=== PATIENT | male | born 1945 | race Hispanic/Latino ===

== ENCOUNTER 2020-01-26 21:17 | Observation (INO) | payer MEDICARE, BC, OTHER ==
[2020-01-26 21:52] LABS: #Monocytes 0.4 thou/uL (0.11-0.59); #Neutrophils 3.3 thou/uL (1.40-6.50); %Basophils 0.3 % (0.0-1.0); %Eosinophils 0.8 % (0.0-10.0); %Lymphocytes 20.3 % (21.0-51.0); %Monocytes 8.2 % (0.0-10.0); %Neutrophils 70.4 % (42.0-75.0); Hemoglobin 15.2 g/dL (14.0-18.0); Mean Corpuscular HGB CONC 34.1 g/dL (32.0-36.0); Mean Corpuscular Hemoglobin 31.2 pg (27.0-31.0); Mean Corpuscular Volume 91.6 fL (78.0-98.0); RBC Distribution Width 11.9 % (11.5-14.5); Red Blood Cell (RBC) Count 4.88 mill/uL (4.70-6.10); White Blood Cell (WBC) Count 4.7 thou/uL (4.8-10.8)
--- NOTE | 2020-01-26 21:53 | RAD ---
EXAM: Single view of the chest HISTORY: Chest palpitations COMPARISON: 09/25/2007 FINDINGS: Single view of the chest shows a normal sized cardiomediastinal silhouette. The patient is status post sternotomy. There is no evidence of consolidation, mass, or pleural effusion. Degenerative changes are seen in the spine. IMPRESSION: No evidence of acute cardiopulmonary disease
[2020-01-26 22:13] LABS: MDiff Complete? YES; Mean Platelet Volume 8.7 fL (7.4-10.4); Platelet Count 117 thou/uL (130-400); Platelet Morphology Comment Appears Decreased; Polychromasia SLIGHT = 2-3 cells (100X) (0-2/hpf)
[2020-01-26 22:14] LABS: ALT (SGPT) 23 U/L (8-55); AST (SGOT) 32 U/L (5-34); Albumin 4.2 g/dL (3.4-4.8); Alkaline Phosphatase 93 U/L (40-110); Anion Gap 11 mmol/L (10-20); BUN (Urea Nitrogen) 27 mg/dL (8.4-25.7); Bilirubin, Total 1.7 mg/dL (0.2-1.2); CK (CPK) 300 U/L (30-200); Calc. Creatinine Clearance 0 mL/min (70-130); Carbon Dioxide 29 mmol/L (23-31); Chloride 106 mmol/L (98-107); Estimated GFR-MDRD 68; Globulin 3.7 g/dL (2.4-3.5); Glucose 120 mg/dL (83-110); Potassium 3.7 mmol/L (3.5-5.1); Protein, Total 7.9 g/dL (5.8-8.1); Sodium 142 mmol/L (136-145)
--- NOTE | 2020-01-26 22:48 | PDOC.FPRHP ---
Addendum entered and electronically signed by Raquel Briscoe DO 01/27/20 04:53: Cr was normal at 1.06 on admission. GFR at 68 was reason for suspicion HOLLIS vs. CKD. Original Note: - History of Present Illness Chief Complaint: palpitations History of Present Illness: Patient is a 74 yo M, PMHx of ND (CABG 2018), HTN, HLD who presents to the ED with complaints of palpitations and L sided chest discomfort described as "bubbles and discomfort that started in the upper abdomen and moved into the left side of the chest" accompanied by cramping in his hands b/l. He notes the chest discomfort started late afternoon after he had been outside working all day, lasted about 2 hours before coming in and the hand cramping lasted about an hour before he came to the ED. Patient denies pain in his chest and notes that his ND in 2007 also did not present with pain. He states he did not have much water to drink during the day, but did eat well. Patient denies N/V, shortness of breath, dizziness/lightheaded, fever, cough, congestion. Patient states that he has been having intermittent LUQ pain associated with constipation intermittently for weeks. Denies blood in his stools. ED Course: 500mL NS, aspirin 324, nitro, 1g tylenol - Allergies/Adverse Reactions Allergies Allergy/AdvReac Type Severity Reaction Status Date / Time No Known Allergies Allergy Unverified 01/27/20 00:35 - History PMHx:ND, HTN, HLD PSHx: CABG 2018, prostectomy FHx: grandmother with ND Social: no smoking, alcohol or drugs - Review of Systems General: denies: fever/chills, weight/appetite/sleep changes Eyes: denies: eye pain, vision changes ENT: denies: nasal congestion, rhinorrhea Respiratory: denies: cough, shortness of breath Cardiovascular: reports: chest pain (chest discomfort), palpitation. denies: edema Gastrointestinal: reports: abdominal pain. denies: nausea, vomiting, diarrhea Genitourinary: denies: incontinence, dysuria Skin: denies: rashes, lesions Musculoskeletal: denies: pain, tenderness Neurological: denies: numbness, syncope - Vital signs BP: 150/84, Pulse: 56, Resp: 16, Temp: 98.3F, O2 sat: 100 on RA, Wt: 64.4kg - Physical Exam Constitutional: NAD, awake, alert and oriented HEENT: normocephalic and atraumatic, EOMI Neck: supple, FROM Chest: no-tender to palpation, no lesions Heart: RRR, no murmurs/rubs/gallops, pulses present, no edema Lungs: CTAB, no respiratory distress Abdomen: soft, no masses/distention Musculoskeletal: normal structure, normal tone Neurological: no focal deficit, normal sensation Skin: no rash/lesions, good turgor Heme/Lymphatic: no unusual bruising or bleeding, no purpura FMR H&P: Results - Labs Result Diagrams: 01/27/20 06:07 01/27/20 06:07 Lab results: WBC 4.7 thou/uL (4.8-10.8) L 01/26/20 21:32 Hgb 15.2 g/dL (14.0-18.0) 01/26/20 21:32 Hct 44.7 % (42.0-52.0) 01/26/20 21:32 MCV 91.6 fL (78.0-98.0) 01/26/20 21:32 Plt Count 117 thou/uL (130-400) L 01/26/20 21:32 Neutrophils % 70.4 % (42.0-75.0) 01/26/20 21:32 Sodium 142 mmol/L (136-145) 01/26/20 21:32 Potassium 3.7 mmol/L (3.5-5.1) 01/26/20 21:32 Chloride 106 mmol/L (98-107) 01/26/20 21:32 Carbon Dioxide 29 mmol/L (23-31) 01/26/20 21:32 BUN 27 mg/dL (8.4-25.7) H 01/26/20 21:32 Creatinine 1.06 mg/dL (0.7-1.3) 01/26/20 21:32 Glucose 120 mg/dL (83-110) H 01/26/20 21:32 Calcium 9.0 mg/dL (7.8-10.44) 01/26/20 21:32 Total Bilirubin 1.7 mg/dL (0.2-1.2) H 01/26/20 21:32 AST 32 U/L (5-34) 01/26/20 21:32 ALT 23 U/L (8-55) 01/26/20 21:32 Alkaline Phosphatase 93 U/L (40-110) 01/26/20 21:32 Creatine Kinase 300 U/L (30-200) H 01/26/20 21:32 Serum Total Protein 7.9 g/dL (5.8-8.1) 01/26/20 21:32 Albumin 4.2 g/dL (3.4-4.8) 01/26/20 21:32 - EKG Interpretation EKG: NS at 64bpm, no ST changes FMR H&P: A/P - Plan Atypical Chest Pain Suspicious for GERD vs ACS Trop neg x 2, CXR wnl, - Ordered GI cocktail - NPO for possible stress in am if warranted - consider ECHO due to palpitations - will additionally order TSH, Mg, Phos - continue cardiac monitoring on tele - will need cards f/u on d/c - will resume home aspirin HOLLIS vs CKDII Cr 1.5 on admission Given 500mL NS in ED - am CBC/CMP ordered HTN - will hold home metoprolol d/t am stress - prn hydralazine for severe range pressures Elevated CK - mildly elevated at 300 Given 500mL NS bolus in ED HLD - home pravastatin, will resume Dispo: admit tele obs, LOS <48 hours PCP: none PPx: none Delores score 2 Code status: Full FMR H&P: Upper Level - Plan Date/Time: 01/26/20 8551 IAlexa, have evaluated this patient and agree with findings/plan as outlined by internal combustion engineer resident. Pertinent changes/additions are listed here. 74YOM with a PMH notable for CAD s/p 4V CABG and HTN who presented to the ED with a CC of chest discomfort that began earlier on the evening of presentation with associated right hand cramping. Patient reported that earlier in the day while he was working outside in the heat he had sudden onset left chest/LUQ "discomfort" that was associated with right hand cramping and palpitations that lasted about 1-2 hours before subsiding. Did not take anything for relief at home but given his history of a prior ND wanted to get evaluated to make sure nothing was going on with his heart. On arrival to the ED his vitals were WNLs with the exception of a slightly elevated BP and he was given 324mg ASA, nitropaste, 1p PO tylenol & 500mL of NS. On exam his was bradycardic but in NAD and chest pain free. Otherwise, his exam was unremarkable. His lab & imaging workup was notable for a slight HOLLIS vs. CKDII. CXR & EKG were WNLs. He was admitted for close observation overnight for continued telemetry monitoring and trending of his troponins given his significant cardiac history. Regarding his atypical chest "pain or discomfort," plan will be to continue to trend his troponins but stop if second is WNLs. Will try a GI cocktail as discomfort was more suspicious for GERD & make NPO if day team thinks a stress is warranted. Would consider obtaining an ECHO though due to reported palpitations & will continue continuous telemetry monitoring once on the floor. Will also check a TSH & Mg & phos levels. Regarding his HTN, will hold home metoprolol for possible AM stress but will have PRN hydralazine available for severe range pressures. Anticipated LOS < 2 midnights pending clinical course. Addendum - Attending - Attending Attestation Date/Time: 01/27/20 6244 I personally evaluated the patient and discussed the management with Dr. Briscoe. I agree with the History, Examination, Assessment and Plan documented above with any addition or exceptions noted below. The patient presented with atypical chest pain, hollis. The cardiac enzymes are stable. Pt has history of cabg in 2007, not 2018. He has not had a recent stress test. Will get stress test. Monitor blood pressure. Trend creatinine, it did down-trend overnight. Suspect dehydration as he was working outside most of the day yesterday.
[2020-01-26 23:22] LABS: Magnesium 2.1 mg/dL (1.6-2.6); Phosphorus 2.1 mg/dL (2.3-4.7)
[2020-01-26] MEDS ORDERED: Acetaminophen 325 MG TAB PO PRN (23:38)
[2020-01-26] MEDS ORDERED: Lidocaine 2% Viscous Solution 10 ML, Aluminum & Magnesium Hydroxide 30 ML SSW SCH (23:45)
[2020-01-27] MEDS ORDERED: Aspirin Chewable 81 MG TAB ONE (00:16)
[2020-01-27] MEDS ORDERED: Nitroglycerin 2% Ointment 1 INCH/1 GM Packet ONE (00:29)
[2020-01-27] MEDS ORDERED: Acetaminophen 500 MG TAB ONE (00:29)
[2020-01-27 01:11] LABS: Troponin I 0.026 ng/mL (< 0.028)
[2020-01-27] MEDS ORDERED: hydrALAZINE 10 MG TAB PO PRN (02:02)
[2020-01-27 06:36] LABS: ALT (SGPT) 19 U/L (8-55); AST (SGOT) 25 U/L (5-34); Albumin 3.5 g/dL (3.4-4.8); Alkaline Phosphatase 69 U/L (40-110); Anion Gap 7 mmol/L (10-20); BUN (Urea Nitrogen) 26 mg/dL (8.4-25.7); Bilirubin, Total 1.5 mg/dL (0.2-1.2); Calc. Creatinine Clearance 0 mL/min (70-130); Calcium 8.1 mg/dL (7.8-10.44); Carbon Dioxide 27 mmol/L (23-31); Chloride 108 mmol/L (98-107); Estimated GFR-MDRD Greater than 90; Glucose 89 mg/dL (83-110); Potassium 3.9 mmol/L (3.5-5.1); Protein, Total 6.5 g/dL (5.8-8.1); Sodium 138 mmol/L (136-145)
[2020-01-27 06:38] LABS: #Lymphocytes 1.1 thou/uL (1.20-3.40); #Monocytes 0.4 thou/uL (0.11-0.59); #Neutrophils 2.3 thou/uL (1.40-6.50); %Basophils 0.8 % (0.0-1.0); %Eosinophils 0.8 % (0.0-10.0); %Lymphocytes 28.1 % (21.0-51.0); %Neutrophils 60.3 % (42.0-75.0); Hemoglobin 12.9 g/dL (14.0-18.0); MDiff Complete? YES; Mean Corpuscular Hemoglobin 29.9 pg (27.0-31.0); Mean Corpuscular Volume 90.5 fL (78.0-98.0); Mean Platelet Volume 8.9 fL (7.4-10.4); Platelet Count 94 thou/uL (130-400); Platelet Morphology Comment Appears Decreased; RBC Distribution Width 11.7 % (11.5-14.5); Red Blood Cell (RBC) Count 4.32 mill/uL (4.70-6.10); White Blood Cell (WBC) Count 3.8 thou/uL (4.8-10.8)
[2020-01-27] MEDS ORDERED: Metoprolol Tartrate 50 MG TAB PO SCH (09:00)
[2020-01-27] MEDS ORDERED: ADENOSINE 60 MG/20 ML VIAL ONE (11:07)
--- NOTE | 2020-01-27 14:05 | PDOC.FM ---
- Subjective Subjective: Mr. Herron is doing well today. He is not currently feeling any chest discomfort. He states the chest discomfort is similar to that which he felt in 2006 prior to his CABG. He states he had been experiencing this discomfort intermittently for weeks but yesterday it just kept getting stronger. He says that while he was outside working all day it did not start hurting until after he stopped. He is agreeable to doing a stress test and specifically requested a treadmill one rather than a chemical one. His nurse said he normally gets Metoprolol in the mornings which we held because of the stress test but his HR when I spoke to him ranged from 58-60 so there is suspicion now that his symptoms resulted from inappropriate metoprolol dosing. - Objective Result Diagrams: 01/27/20 06:07 01/27/20 06:07 Phys Exam - Physical Examination Constitutional: NAD alert, awake, calm, slow in speech EOMI Neck: supple, full ROM Respiratory: clear to auscultation bilateral Cardiovascular: RRR, no significant murmur Gastrointestinal: soft, non-tender, no distention Neurological: moves all 4 limbs Psychiatric: normal affect, A&O x 3 Dx/Plan - Plan Plan: Atypical Chest Pain Suspicious for GERD vs ACS Trop neg x 2, CXR wnl - Ordered GI cocktail - Stress results pending, NPO until resulted - Consider ECHO due to palpitations - TSH 2.46 - Mg 2.1 - Phos 2.1, low, replaced - Hold Metoprolol - Continue cardiac monitoring on tele - will need cards f/u on d/c - will resume home aspirin HOLLIS vs CKDII - Cr 1.5 on admission (01/25), 1.06 (01/26) - Given 500mL NS in ED - Monitor HTN - will hold home metoprolol d/t am stress - Normotensive and bradycardic on 01/26. Will educated patient about checking BP/ HR at home prior to taking Metoprolol - prn hydralazine for severe range pressures Elevated CK - mildly elevated at 300 - Given 500mL NS bolus in ED HLD - home pravastatin, will resume Dispo: admit tele obs, LOS <48 hours PCP: none PPx: none Delores score 2 Code status: Full Addendum - Attending - Attending Attestation Date/Time: 01/27/20 3621 I personally evaluated the patient and discussed the management with Dr. Robi Chen. I agree with the History, Examination, Assessment and Plan documented above with any addition or exceptions noted below. The patient notes his chest discomfort has resolved. With previous cabg, will order stress test to further evaluate.
[2020-01-27 15:04] LABS: SARS-CoV-2 MS2 Positive; SARS-CoV-2 N Gene Negative; SARS-CoV-2 S Gene Negative; SARS-CoV-2 by NAA Not Detected (NotDetected); SARS-CoV-2 orf1ab Negative
--- NOTE | 2020-01-27 15:23 | NM ---
NM Cardiac Stress W EF WF History: Chest pain Comparison: Stress test 2007 Findings: Stress and rest performed after the intravenous administration of 30.8 and 11 mCi technetiu m 99m knee, respectively. Adequate left ventricular uptake of radiotracer. No scar or ischemia. Normal calculated ejection fraction of 77%. Impression: Normal nuclear medicine cardiac stress test.
--- NOTE | 2020-01-28 14:28 | DIS ---
DATE OF ADMISSION: 01/26/2020 DATE OF DISCHARGE: 01/27/2020 RESIDENT: Deepa Lockhart MD ADMITTING ATTENDING: Petty Frausto MD DISCHARGE ATTENDING: Petty Frausto MD. CONSULTS: None. PROCEDURES: Stress test. PRIMARY DIAGNOSIS: Atypical chest pain of unknown origin. SECONDARY DIAGNOSIS: Acute kidney injury versus chronic kidney disease stage 2 Hypertension Elevated CK Hyperlipidemia. DISCHARGE MEDICATIONS: None. DISCONTINUED MEDICATIONS: Nitroglycerin paste. HISTORY OF PRESENT ILLNESS/HOSPITAL COURSE: The patient presented to the ED on 01/26/2020 for atypical chest pain. He had been outside working on his truck under an awning for several hours when he started having chest discomfort that he described as "bubbles and discomfort that started in the upper abdomen that moved into the left side of my chest," accompanied by cramping in his hands bilaterally. He denied pain in his chest, but stated that his NH in 2006 also did not present with pain. A chest x-ray was performed in the ED, which showed no evidence of acute cardiopulmonary disease. A nuclear stress test was performed , which was normal. There is suspicion that the cause of his chest discomfort may be inappropriate dosing of metoprolol because when seen the morning of 01/27/2020, he had not received his morning dose of metoprolol but his SBP was in the 130s and his heart rate was in the upper 50s. It is possible that his metoprolol dosing is too high or no longer necessary and that this may have been the cause of the chest discomfort. The plan was to discharge the patient with instructions to monitor his blood pressure and heart rate at home in order to determine when he should take his metoprolol until he was able to f/u with his parcel carrier in the outpatient setting, but the patient left AMA before receiving these instructions. The ED nurse she going to attempt to contact him to pass on these instructions but it is not known if she was successful. DISPOSITION: Stable. DISCHARGE INSTRUCTIONS: The patient left AMA, but the intended location was home with a heart healthy diet, ad tim activity and instructions to follow up with his parcel carrier, outpatient. Job ID: [id number] [id number]
== END 2020-01-27 16:34 | disposition home or self-care (01) ==
LOC: ERS 21:17 → ERHOLD 22:56
PROVIDERS: ADMIT Family Medicine; ATTEND Family Medicine
DX: R07.89 Other chest pain (principal); R00.2 Palpitations; I25.2 Old myocardial infarction; I10 Essential (primary) hypertension; E78.5 Hyperlipidemia, unspecified; R74.8 Abnormal levels of other serum enzymes; Z53.29 Procedure and treatment not carried out because of patient's decision for other reasons; Z79.82 Long term (current) use of aspirin; Z79.899 Other long term (current) drug therapy; Z95.1 Presence of aortocoronary bypass graft; Z20.828 Contact with and (suspected) exposure to other viral communicable diseases
CPT/HCPCS: 71045; 78452; 80053; 82550; 83735; 84100; 84484 ×2; 85025; 85379; 93005; 93017; 96360; 99285; A9500; U0003; 36415; 84443; 87635; G0378; J0153

== ENCOUNTER 2022-08-11 16:19 | Emergency (ER) | payer MEDICARE, BC ==
[2022-08-11 16:57] LABS: #Lymphocytes 1.1 thou/uL (1.20-3.40); #Monocytes 0.5 thou/uL (0.11-0.59); #Neutrophils 3.4 thou/uL (1.40-6.50); %Basophils 0.3 % (0.0-1.0); %Eosinophils 0.6 % (0.0-10.0); %Lymphocytes 21.9 % (21.0-51.0); %Monocytes 9.8 % (0.0-10.0); %Neutrophils 67.4 % (42.0-75.0); Hemoglobin 15.5 g/dL (14.0-18.0); Mean Corpuscular HGB CONC 34.7 g/dL (32.0-36.0); Mean Corpuscular Hemoglobin 32.1 pg (27.0-31.0); Mean Corpuscular Volume 92.7 fl (78.0-98.0); Mean Platelet Volume 9.2 fL (7.4-10.4); Platelet Count 140 10x3/uL (130-400); RBC Distribution Width 11.9 % (11.5-14.5); Red Blood Cell (RBC) Count 4.82 mill/uL (4.70-6.10); White Blood Cell (WBC) Count 5.1 10x3/uL (4.8-10.8)
[2022-08-11 17:15] LABS: ALT (SGPT) 24 U/L (8-55); AST (SGOT) 29 U/L (5-34); Alkaline Phosphatase 103 U/L (40-110); Anion Gap 15 mmol/L (10-20); BUN (Urea Nitrogen) 12 mg/dL (8.4-25.7); Bilirubin, Total 1.7 mg/dL (0.2-1.2); Calc. Creatinine Clearance 0 mL/min (70-130); Calcium 9.6 mg/dL (7.8-10.44); Carbon Dioxide 25 mmol/L (23-31); Chloride 100 mmol/L (98-107); Estimated GFR 92; Globulin 4.1 g/dL (2.4-3.5); Glucose 115 mg/dL (83-110); Magnesium 1.8 mg/dL (1.6-2.6); Potassium 3.4 mmol/L (3.5-5.1); Protein, Total 8.1 g/dL (5.8-8.1); Sodium 137 mmol/L (136-145)
[2022-08-11 17:26] LABS: Bacteria/HPF None Seen HPF (None Seen); Bilirubin Negative (Negative); Blood, Urine 1+ (Negative); Clarity Clear (Clear); Glucose, Urine (Dipstick) Normal (Negative); Ketone, Urine Trace mg/dL (Negative); Leukocyte Negative Leu/uL (Negative); Nitrite Negative (Negative); Protein, Urine (Dipstick) Negative (Neg-Trace); RBC/HPF 0-3 HPF (0-3); Specific Gravity, Urine 1.012 (1.002-1.036); Squamous Epithelial None Seen HPF (0-3); Urobilinogen Normal mg/dL (Less than 2); WBC/HPF 0-3 HPF (0-3)
[2022-08-11 17:35] LABS: Amphetamine Not Detected (NotDetected); Barbiturates Screen Not Detected (NotDetected); Benzodiazepine Screen Not Detected (NotDetected); Cocaine Metabolite Screen Not Detected (NotDetected); Methadone Not Detected (NotDetected); Methamphetamine Not Detected (NotDetected); Opiate Screen Not Detected (NotDetected); Oxycodone Screen Not Detected (NotDetected); Phencyclidine (PCP) Not Detected (NotDetected); THC/Cannabinoid Screen Not Detected (NotDetected); Tricyclic Screen Not Detected (NotDetected)
== END 2022-08-11 23:04 | disposition home or self-care (01) ==
LOC: ERS 16:19
DX: R00.2 Palpitations (principal); R07.9 Chest pain, unspecified; J18.9 Pneumonia, unspecified organism; I10 Essential (primary) hypertension; E78.5 Hyperlipidemia, unspecified; Z79.82 Long term (current) use of aspirin; Z79.899 Other long term (current) drug therapy
CPT/HCPCS: 36415; 71045; 80053; 80306; 81003; 81015; 83735; 84443; 84484; 85025; 85379; 93005